=== PATIENT | female | born 1980 | race Caucasian/White ===

== ENCOUNTER 2016-11-08 16:39 | Emergency (ER) | payer OTHER ==
[2016-11-08 18:11] LABS: BASOPHILS % 0.4 (0.0-1.5); EOSINOPHILS % 1.4 % (0.0-6.8); LYMPHOCYTES # 3.8 # k/uL (0.6-4.0); MEAN CORPUSCULAR HEMOGLOBIN 32.4 pg (28.0-34.0); MONOCYTES # 0.7 # k/uL (0.0-0.9); MONOCYTES % 4.6 % (0.0-11.0); NEUTROPHILS # 10.3 # k/uL (1.4-7.7)
[2016-11-08 18:26] LABS: eGFR (African) > 60; eGFR (Non-African) > 60
--- NOTE | 2016-11-08 19:31 | ED Physician Documentation ---
Female Urogenital Problems - HISTORIAN Historian: patient - HPI Stated Complaint: vaginal bleeding Chief Complaint: Female Urogenital Problems Further Comments: yes (36 year old female patient presents with complaints of vaginal bleeding. Reports her LMP as 09/13/17, G2, P1, AB0) - Vaginal Bleeding Where was Test Done: home - Associated Symptoms Urinary Symptoms: none - ROS CONST: none GI/: denies: nausea, vomiting, diarrhea CVS/RESP: none EYES/ENT: none NEURO/PSYCH: none MS/SKIN/LYMPH: none - PAST HX Past History: other (Blood clots - patient unsure of diagnosis, states it was related to her birthcontrol) Other History: diabetes Type 2, other (2013 - DVT, PE, abdominal "clot", melvin filter placed and removed. ) Allergies/Adverse Reactions: Allergies Allergy/AdvReac Type Severity Reaction Status Date / Time No Known Allergies Allergy Verified 11/08/16 17:56 Home Medications: Ambulatory Orders Medication Instructions Recorded NK [NK] 11/08/16 - SOCIAL HX Smoking History: non-smoker - FAMILY HX Family History: none - VITAL SIGNS Vital Signs: Vital Signs Temp Pulse Resp BP Pulse Ox 98 F 87 14 140/88 99 11/08/16 16:40 11/08/16 16:40 11/08/16 16:40 11/08/16 16:40 11/08/16 16:40 - REVIEWED ASSESSMENTS Nursing Assessment Reviewed: Yes Vitals Reviewed: Yes Progress - Progress Progress: Patient denies any back of abd pain. 1930 Extensive discussion on plan of care and follow up. Explained patient needed to see her PCP on Thursday for follow up lab and US. Patient states she has an appointment on 11/24/16 with OB. ED Results Lab/Radiology - Lab Results Lab Results: Lab Results 11/08/16 11/08/16 11/08/16 17:56 16:43 16:43 WBC 15.20 K/ul H K/ul (4.00-12.00) RBC 4.74 M/ul M/ul (3.90-5.20) Hgb 15.4 g/dL g/dL (12.0-16.0) Hct 45.2 % % (34.5-46.5) MCV 95.3 fl fl (80.0-100.0) MCH 32.4 pg pg (28.0-34.0) MCHC 34.0 g/dL g/dL (30.0-36.0) RDW 12.9 % % (11.3-14.3) Plt Count 200 K/mm3 K/mm3 (130-400) Neut % (Auto) 67.7 % % (39.0-79.0) Lymph % (Auto) 24.8 % % (16.0-50.0) Owsley % (Auto) 4.6 % % (0.0-11.0) Eos % (Auto) 1.4 % % (0.0-6.8) Baso % (Auto) 0.4 (0.0-1.5) Neut # 10.3 # k/uL H # k/uL (1.4-7.7) Lymph # 3.8 # k/uL # k/uL (0.6-4.0) Owsley # 0.7 # k/uL # k/uL (0.0-0.9) Eos # 0.2 # k/uL # k/uL (0.0-0.6) Baso # 0.1 # k/uL # k/uL (0.0-0.5) Reactive Lymphs % 1.1 % % (0.0-5.0) Reactive Lymphs # 0.2 # k/uL # k/uL (0.0-0.8) Sodium 140 mmol/L mmol/L (136-145) Potassium 3.7 mmol/L mmol/L (3.5-5.0) Chloride 102 mmol/L mmol/L (98-110) Carbon Dioxide 33 mmol/L H mmol/L (20-32) BUN 12 mg/dL mg/dL (10-26) Creatinine 0.6 mg/dL mg/dL (0.4-1.5) Estimated Creat Clear 229 Est GFR ( Amer) > 60 (60 - ) Est GFR (Non-Af Amer) > 60 (60 - ) Glucose 143 mg/dL H mg/dL (70-99) Calcium 10.6 mg/dL H mg/dL (8.5-10.5) Total Bilirubin 0.8 mg/dL mg/dL (0.2-1.2) AST 15 U/L U/L (0-41) ALT 15 U/L U/L (0-45) Alkaline Phosphatase 68 U/L U/L (46-116) Total Protein 8.3 g/dL g/dL (6.0-8.5) Albumin 5.3 g/dL g/dL (3.0-5.5) Urine HCG, Qual Positive H (NEGATIVE) - Orders Orders: ED Orders Category Date Time Status ABO/RH TYPE Stat Lab 11/08/16 17:55 Received CBC/PLATELET/DIFF Stat Lab 11/08/16 16:43 Completed CMP Stat Lab 11/08/16 16:43 Completed HCG QUANTITATIVE Stat Lab 11/08/16 17:56 Received UA W/MICRO IF INDICATED Stat Lab 11/08/16 16:43 Ordered URINE HCG Stat Lab 11/08/16 17:56 Completed Female Urogenital Problems - EXAM General Appearance: mild distress EENT: eye inspection normal, [place] Respiratory: no resp. distress, breath sounds nml CVS: reg rate & rhythm, heart sounds normal, equal pulses, no murmur, no gallop , PMI nml, no JVD, no friction rub, 24 Abdomen: soft, non-tender, no organomegaly, no distention, nml bowel sounds, other (obese) Pelvic: external exam nml, speculum exam nml, active bleeding, mild, other (no cervical dilation, os closed) Back: non-tender, painless ROM Skin: color nml, no rash, warm,dry Extremities: non-tender, normal range of motion, no evidence of injury, no edema , J, [employer] Neuro: oriented X3, CN's nml as tested, motor nml, sensation nml, mood/affect nml Discharge Clincal Impression: Threatened in early Referrals: Primary Doctor,No [Primary Care Provider] - 2 Days Additional Instructions: Return to Er if you are soaking more than 1 pad per hour. You may experience increased vaginal bleeding, cramping and low back discomfort. Return to ER if you are unable to control your pain with over the counter medications. Return to ER if you develop fever >100.5, or worsening symptoms. You need to see your doctor on Thursday for repeat lab (quantitative HCG and set up for Ultrasound) Your blood type is B+ Home Medications: Ambulatory Orders NK [NK] 11/08/16 Condition: Stable Disposition: 01 HOME, SELF-CARE Decision to Admit: NO Decision Time: 19:57
[2016-11-08 22:13] VITALS: BP 138/84
== END 2016-11-08 20:00 | disposition home or self-care (01) ==
LOC: ED 16:39
DX: O20.0 Threatened abortion (principal)
CPT/HCPCS: 80053; 81025; 84702; 85025; 86900; 86901; 99283